=== PATIENT | female | born 1940 | race Caucasian/White ===

== ENCOUNTER 2018-09-07 09:56 | Day surgery (SDC) | payer MEDICARE, BC ==
[2018-09-07] VITALS (9 sets, daily range): BP systolic 126–154; BP diastolic 60–88
[~2018-09-07] VITALS: Ht 154.9 cm; Wt 76.0 kg
[~2018-09-07 09:56] MED LIST: ATOR10TA70 PO; CALC-793 PO; CALC-995 PO; CLOP75TA33 PO; CYCL1DRO EACHEYE; DESV50TA PO; DEXT1DRO9 EACHEYE; ESOM40CA30 PO; FLAX100019 PO; GABA-532 PO; GALA24CA PO; GLUC-133 PO; GUAN2TAB19 PO; HYDR-4353 PO; HYDR12.597 PO; LEVO100T PO; METF-436 PO; MIRA25TA PO; MULT1TAB74 PO; NEFA50TA PO; NORT50CA5 PO; OXCA150T14 PO; RAMI2.5C2 PO; SPIIN INH; UMEC1DIS INH; VITA-268 PO
[2018-09-07 10:55] LABS: BASOPHILS % (AUTO) 0.6 % (0-1); EOSINOPHILS # (AUTO) 0.4 X10'3 (0-0.9); EOSINOPHILS % (AUTO) 6.2 % (0-6); HEMATOCRIT 41.3 % (35.0-45.0); HEMOGLOBIN 13.7 g/dl (12.0-16.0); LYMPHOCYTES # (AUTO) 1.5 X10'3 (1.1-4.8); LYMPHOCYTES % (AUTO) 21.1 % (21-51); MEAN CORPUSCULAR HEMOGLOBIN 30.8 PG (27.0-31.0); MEAN CORPUSCULAR HGB CONC 33.2 % (33.0-36.5); MEAN CORPUSCULAR VOLUME 92.7 FL (78-98); MEAN PLATELET VOLUME 7.4 FL (7.4-10.4); MONOCYTES # (AUTO) 0.5 X10'3 (0-0.9); MONOCYTES % (AUTO) 6.7 % (2-12); NEUTROPHILS # (AUTO) 4.7 X10'3 (1.8-7.7); NEUTROPHILS % (AUTO) 65.4 % (42-75); PLATELET COUNT 318 X10'3 (140-440); RED BLOOD COUNT 4.45 X10'6 (4.20-5.60); RED CELL DISTRIBUTION WIDTH 16.5 % (11.5-14.5); WHITE BLOOD COUNT 7.2 X10'3 (4.5-11.0)
[2018-09-07 11:05] LABS: ANION GAP 15 (8-16); BLOOD UREA NITROGEN 12 MG/DL (7-18); BUN/CREATININE RATIO 14.3 (6.6-38.0); CALCIUM 9.7 MG/DL (8.5-10.1); CHLORIDE 105 MMOL/L (99-107); CREATININE 0.84 MG/DL (0.40-0.90); GLUCOSE 120 MG/DL (70-104); POTASSIUM 3.8 MMOL/L (3.5-5.1); SODIUM 143 MMOL/L (135-145); TOTAL CARBON DIOXIDE 23.1 MMOL/L (24-32); eGFR 66 ML/MIN
[2018-09-07 11:08] LABS: PARTIAL THROMBOPLASTIN TIME 26 SECONDS (22-32); PROTHROMBIN TIME 10.1 SECONDS (9.0-12.0)
[2018-09-07] MEDS ORDERED: normal saline 1000ml 1,000 ML IV SCH ×2 (11:10→15:20)
[2018-09-07] MEDS ORDERED: ceFAZolin inj. 2,000 MG in dextrose 5%-water 100 ML IV ONE (11:10)
[2018-09-07] MEDS ORDERED: LEVO50TA PO (11:43)
[2018-09-07] MEDS ORDERED: BUSP10TA11 PO (11:47)
[2018-09-07] MEDS ORDERED: ZOLP5TAB8 PO (11:49)
[2018-09-07] MEDS ORDERED: lidocaine 1%/epinephrine 1:100,000 injection 50ml vial ONE (12:09)
[2018-09-07] MEDS ORDERED: cefazolin/dext.iso 2gm/50ml 50 ML IV ONE (12:09)
[2018-09-07] MEDS ORDERED: fentaNYL/PF 50MCG/1 ML 2ML syringe ONE (12:09)
[2018-09-07] MEDS ORDERED: midazolam 2 mg/2 ml injection ONE ×2 (12:09→13:31)
[2018-09-07] MEDS ORDERED: ceFAZolin 1000mg inj ONE (12:09)
[2018-09-07] MEDS ORDERED: hydrALAZINE 20mg/ml inj. IV ONE (13:59)
[2018-09-07] MEDS ORDERED: hydrALAZINE 20mg/ml inj. IV PRN (15:15)
--- NOTE | 2018-09-07 16:40 | NUR ---
PATIENT GETTING VERY AGITATED AND STAYING I WANT TO GO HOME NOW. VOICE RAISED AND VERY ANXIOUS. DR. CELESTIN CALLED. OK TO SEND PATIENT HOME EARLY. GIVEN INSTUCTIONS TO TAKE HER ORAL ANTIBIOTIC TONIGHT SINCE SHE DID NOT WANT TO WAIT TO HAVE HER IV ANTIBIOTIC AT 1800. PATIENT AND STATED SHE WOULD BE COMPLIANT. PATIENT DISCHARGED WITH ALL INSTUCTIONS AND WITH ANTIBIOTIC FROM [facility]IVERY WITH HER. NO DISTRESS NOTED. JUST VERY ANXIOUS AND REPEATEDLY SAYING I WANT TO GO HOME NOW!
[2018-09-07] MEDS ORDERED: ceFAZolin 1GM/D5W- ADD-VANTAGE 50 ML IV SCH (18:00)
== END 2018-09-07 17:15 | disposition home or self-care (01) ==
LOC: SSTAY O 09:56
PROVIDERS: ATTEND Internal Medicine Cardiovascular Disease
DX: Z45.010 Encounter for checking and testing of cardiac pacemaker pulse generator [battery] (principal); I10 Essential (primary) hypertension; E78.5 Hyperlipidemia, unspecified; I49.5 Sick sinus syndrome; I48.0 Paroxysmal atrial fibrillation; I44.4 Left anterior fascicular block; E11.9 Type 2 diabetes mellitus without complications; E03.9 Hypothyroidism, unspecified; K21.9 Gastro-esophageal reflux disease without esophagitis; M19.90 Unspecified osteoarthritis, unspecified site; F32.9 Major depressive disorder, single episode, unspecified; F41.8 Other specified anxiety disorders; Z88.1 Allergy status to other antibiotic agents; Z88.0 Allergy status to penicillin; Z85.850 Personal history of malignant neoplasm of thyroid; Z95.5 Presence of coronary angioplasty implant and graft; Z96.652 Presence of left artificial knee joint; Z90.49 Acquired absence of other specified parts of digestive tract; Z98.41 Cataract extraction status, right eye; Z98.42 Cataract extraction status, left eye; Z79.84 Long term (current) use of oral hypoglycemic drugs; Z79.01 Long term (current) use of anticoagulants; Z79.891 Long term (current) use of opiate analgesic; Z79.899 Other long term (current) drug therapy; Z98.890 Other specified postprocedural states; Z83.3 Family history of diabetes mellitus; Z81.8 Family history of other mental and behavioral disorders; Z82.3 Family history of stroke; Z80.8 Family history of malignant neoplasm of other organs or systems
CPT/HCPCS: 33228; 36415; 80048; 82948; 85025; 85610; 85730; 93005; 99152; 99153; A6449; C1785; J0360; J0690; J2250; J3010; J3490; J7030; J7060; A4620

== ENCOUNTER 2024-05-01 06:24 | Observation (INO) | payer MEDICARE, BC ==
[2024-04-30 10:32] LABS: BASOPHILS # (AUTO) 0.1 X10'3 (0-0.2); BASOPHILS % (AUTO) 0.7 % (0-1); EOSINOPHILS # (AUTO) 0.2 X10'3 (0-0.9); EOSINOPHILS % (AUTO) 2.5 % (0-6); LYMPHOCYTES # (AUTO) 2.3 X10'3 (1.1-4.8); LYMPHOCYTES % (AUTO) 29.4 % (21-51); MEAN CORPUSCULAR HEMOGLOBIN 31.4 PG (27.0-31.0); MEAN CORPUSCULAR HGB CONC 31.6 g/dL (33.0-36.5); MEAN CORPUSCULAR VOLUME 99.4 FL (78-98); MEAN PLATELET VOLUME 7.1 FL (7.4-10.4); MONOCYTES # (AUTO) 0.6 X10'3 (0-0.9); MONOCYTES % (AUTO) 7.3 % (2-12); NEUTROPHILS # (AUTO) 4.7 X10'3 (1.8-7.7); NEUTROPHILS % (AUTO) 60.1 % (42-75); PRE OP HEMATOCRIT 35.1 % (35.0-45.0); PRE OP HEMOGLOBIN 11.1 g/dL (12.0-16.0); PRE OP PLATELET COUNT 296 X10'3 (140-440); PRE OP WHITE BLOOD COUNT 7.8 10'3 (4.8-10.8); RED BLOOD COUNT 3.53 X10'6 (4.20-5.60); RED CELL DISTRIBUTION WIDTH 16.7 % (11.5-14.5)
[2024-04-30 10:40] LABS: PRE OP PROTIME 10.9 SECONDS (9.0-12.0)
[2024-04-30 10:43] LABS: ALBUMIN 3.3 G/DL (3.4-5.0); ALKALINE PHOSPHATASE 71 IU/L (46-116); BLOOD UREA NITROGEN 22 MG/DL (7-18); BUN/CREATININE RATIO 29.7 (10.0-20.0); CALCIUM 8.8 MG/DL (8.5-10.1); CHLORIDE 104 MMOL/L (99-107); CREATININE 0.74 MG/DL (0.40-0.90); PRE OP ALT 22 U/L (30-65); PRE OP ANION GAP 7 (8-16); PRE OP AST 17 U/L (10-37); PRE OP BILIRUB, TOTAL 0.3 MG/DL (0.0-1.0); PRE OP GLUCOSE 97 MG/DL (70-104); PRE OP POTASSIUM 4.2 MMOL/L (3.4-5.1); PRE OP SODIUM 140 MMOL/L (135-145); TOTAL CARBON DIOXIDE 29.3 MMOL/L (24-32); TOTAL PROTEIN 6.6 G/DL (6.4-8.2); eGFR 75 ML/MIN
[2024-05-01] VITALS (43 sets, daily range): BP systolic 123–176; BP diastolic 46–81; PULSE 70–93; RESP 12–25; TEMP 96.6–98.3; O2SAT 89–98
[~2024-05-01] VITALS: Ht 152.4 cm; Wt 80.3 kg
[2024-05-01] MEDS: famotidine 20mg tablet PO ONE (05:30)
[~2024-05-01 06:24] MED LIST changes: +ACET-2971 PO; +ACET600C PO; +ALPR-624 PO; -ATOR10TA70 PO; +ATOR40TA71 PO; +BUSP10TA11 PO; -CALC-793 PO; +CHOL10008 PO; +CLON0.1T2 PO; -DESV50TA PO; +DIPH-1164 PO; +DIVA-74 PO; +DONE5TAB7 PO; -ESOM40CA30 PO; +ESOM40CA49 PO; +FOLI1TAB27 PO; -GABA-532 PO; +GABA300C PO; -GALA24CA PO; -GUAN2TAB19 PO; +HYDR-3686 PO; -HYDR12.597 PO; +IMIP25TA PO; +IODORAL PO; -LEVO100T PO; +LEVO100T9 PO; +LIOT5TAB10 PO; +LORA-835 PO; -METF-436 PO; +MULT-620 PO; -MULT1TAB74 PO; -NEFA50TA PO; -NORT50CA5 PO; -OXCA150T14 PO; +PENT100C9 PO; +PROTANDIM; +RAMI10CA78 PO; -RAMI2.5C2 PO; -SPIIN INH; +SUSTAIN; -UMEC1DIS INH; +ZINC PICOLINATE PO; +ZOLP5TAB8 PO; +[UNRECOGNIZED DRUG - CODE] PO
[2024-05-01] MEDS: BUPIVAcaine 2.5mg/ml inj 50ml vial (contains preservative) ONE (06:56)
[2024-05-01] MEDS: methylene blue (5mg/ml) 50mg/10ml ampul IV ONE ×2 (06:56→09:10)
[2024-05-01] MEDS: BUPIVACAINE liposomal/PF 13.3 MG/ML vial IM ONE (06:57)
[2024-05-01] MEDS: cefazolin 2gm/D5W 100mL 100 ML IV ONE (07:14)
[2024-05-01] MEDS ORDERED: morphine 2 MG/ML inj. syringe IV PRN ×2 (10:40→11:00)
[2024-05-01] MEDS ORDERED: enalaprilat dihydrate 2.5mg/2ml vial IV PRN (10:40)
[2024-05-01] MEDS ORDERED: ondansetron/PF 4mg/2ml inj IV PRN ×2 (10:40→11:00)
[2024-05-01] MEDS ORDERED: meperidine/PF 25mg/ml syringe IV PRN ×2 (10:40)
[2024-05-01] MEDS ORDERED: proCHLORperazine 10 MG/2 ml inj IV PRN (10:40)
[2024-05-01] MEDS ORDERED: labetalol 20mg/4ml (5mg/ml) syringe IV PRN (10:40)
[2024-05-01] MEDS ORDERED: morphine 4 MG/ML inj SYRINge IV PRN (10:40)
[2024-05-01] MEDS ORDERED: CEFAZOLIN 2 GM injection IM ONE (11:00)
[2024-05-01] MEDS ORDERED: HYDROcodone/acetaminophen 5mg/325mg tablet PO PRN ×2 (11:00)
[2024-05-01] MEDS: meperidine/PF 25mg/ml syringe IV PRN (11:54)
[2024-05-01] MEDS: cefazolin 2gm/D5W 100mL 100 ML IV SCH (17:15)
[2024-05-01] MEDS ORDERED: DEXTRAN EACHEYE PRN (17:25)
[2024-05-01] MEDS ORDERED: HYPROMELLOSE EACHEYE PRN (17:25)
[2024-05-01] MEDS ORDERED: zolpidem 5mg tablet PO PRN (17:25)
[2024-05-01] MEDS ORDERED: busPIRone 5mg tablet PO PRN (17:25)
[2024-05-01 17:52] LABS: THYROID STIMULATING HORMONE 17.48 ulU/ml (0.34-4.50)
[2024-05-01] MEDS: acetaminophen 325mg tablet PO SCH (21:03)
[2024-05-01] MEDS: atorvastatin 20mg tablet PO SCH (21:04)
[2024-05-01] MEDS: gabapentin 300mg capsule PO SCH (21:04)
[2024-05-01] MEDS: DESMOPRESSIN ACETATE 0.1 MG TABLET PO SCH (21:05)
[2024-05-01] MEDS: donepezil 5mg tablet PO SCH (21:06)
[2024-05-01] MEDS: divalproex 250mg tablet, delayed-release PO SCH (21:06)
[2024-05-01] MEDS: ringers solution, lacted 1,000 ML IV SCH (21:24)
[2024-05-02] VITALS: RESP 14; O2SAT 96
[2024-05-02] MEDS: pentosan 100mg capsule PO SCH
[2024-05-02 00:50] VITALS: BP 119/50; PULSE 80; RESP 16; TEMP 98.1; O2SAT 95
[2024-05-02 02:00] VITALS: RESP 16; O2SAT 95
[2024-05-02 04:41] LABS: BASOPHILS % (AUTO) 0.1 % (0-1); EOSINOPHILS % (AUTO) 0 % (0-6); HEMATOCRIT 28.8 % (35.0-45.0); HEMOGLOBIN 9.3 g/dl (12.0-16.0); LYMPHOCYTES # (AUTO) 1.5 X10'3 (1.1-4.8); LYMPHOCYTES % (AUTO) 12.9 % (21-51); MEAN CORPUSCULAR HEMOGLOBIN 31.9 PG (27.0-31.0); MEAN CORPUSCULAR HGB CONC 32.3 g/dL (33.0-36.5); MEAN CORPUSCULAR VOLUME 98.7 FL (78-98); MEAN PLATELET VOLUME 7.4 FL (7.4-10.4); MONOCYTES % (AUTO) 8.7 % (2-12); NEUTROPHILS # (AUTO) 8.9 X10'3 (1.8-7.7); NEUTROPHILS % (AUTO) 78.3 % (42-75); PLATELET COUNT 247 X10'3 (140-440); RED BLOOD COUNT 2.91 X10'6 (4.20-5.60); RED CELL DISTRIBUTION WIDTH 16.5 % (11.5-14.5); WHITE BLOOD COUNT 11.3 X10'3 (4.5-11.0)
[2024-05-02] MEDS: ringers solution, lacted 1,000 ML IV SCH ×2 (05:30)
[2024-05-02 06:00] VITALS: BP 137/60; PULSE 84; RESP 14; TEMP 97.9; O2SAT 93
[2024-05-02 07:55] VITALS: RESP 14; O2SAT 93
[2024-05-02] MEDS: clopidogrel 75mg tablet PO SCH (08:29)
[2024-05-02] MEDS: lisinopril 20mg tablet PO SCH (08:30)
[2024-05-02] MEDS: pantoprazole 40mg Tablet.DR PO SCH (08:30)
[2024-05-02] MEDS: levoTHYROXINE 100mcg tablet PO SCH (08:30)
[2024-05-02] MEDS: folic acid 1mg tablet PO SCH (08:30)
[2024-05-02] MEDS: cycloSPORINE 0.05% ophthalmic emulsion EACHEYE SCH (08:31)
[2024-05-02] MEDS: cholecalciferol (vitamin D3) 1,000 unit (25mcg) tablet PO SCH (08:32)
[2024-05-02 11:57] VITALS: BP 139/45; PULSE 77; RESP 17; TEMP 98; O2SAT 92
== END 2024-05-02 14:10 ==
LOC: OR 06:24 → S STAY 11:03 → PACU 14:13 → ORTHO 4S 16:52 → SUR 3N 05-02 00:55
PROVIDERS: ADMIT Surgery; ATTEND Surgery
DX: C50.811 Malignant neoplasm of overlapping sites of right female breast (principal); C50.411 Malignant neoplasm of upper-outer quadrant of right female breast; D50.8 Other iron deficiency anemias; F41.9 Anxiety disorder, unspecified; F32.A Depression, unspecified; E03.9 Hypothyroidism, unspecified; E11.9 Type 2 diabetes mellitus without complications; I10 Essential (primary) hypertension; F03.90 Unspecified dementia, unspecified severity, without behavioral disturbance, psychotic disturbance, mood disturbance, and anxiety; I25.10 Atherosclerotic heart disease of native coronary artery without angina pectoris; Z17.0 Estrogen receptor positive status [ER+]; Z95.0 Presence of cardiac pacemaker; Z86.2 Personal history of diseases of the blood and blood-forming organs and certain disorders involving the immune mechanism; Z79.899 Other long term (current) drug therapy
CPT/HCPCS: 19303; 38525; 38792; 80053; 82948; 83036; 84145; 84443; 85610; 85730; 93005; 96365; 96366; A4215; A4615; A4618; A6213; A7000; G0378; J0690; J7120; Q9968; 36415; 71045; 85025; A6253; A6258; A6449; C9250; C9290; J2175; J2270; J2405; J3490